=== PATIENT | male | born 1945 | race Caucasian/White ===

== ENCOUNTER → 2017-11-11 | Outpatient (CLI) | payer MEDICARE, OTHER ==
--- NOTE | 2017-11-11 14:29 | Diagnostic Imaging Report ---
EXAMINATION: Renal ultrasound. CLINICAL HISTORY :Renal cyst COMPARISON: <None available.> TECHNIQUE: Grayscale and color Doppler evaluation of the kidneys and bladder was performed in transverse and longitudinal planes. DISCUSSION: RIGHT KIDNEY: The right kidney measures 12.7 cm in length and shows normal echogenicity. No hydronephrosis, shadowing calculi or solid mass lesions. Right renal cyst superiorly measuring 1.6 cm. Previously measured 1.9 cm. LEFT KIDNEY: The left kidney measures 12.6 cm in length and shows normal echogenicity. No hydronephrosis, shadowing calculi or solid mass lesions. BLADDER: Unremarkable. Prostate measures 3.4 x 1.9 x 2.5 cm with a volume of 8.5 cc. IMPRESSION: 1.6 cm right superior simple renal cyst. Signed by: Dr. Lan Flores M.D. on 11/11/2017 2:25 PM
== END ==
LOC: US 13:33
PROVIDERS: ATTEND Urology
DX: N28.1 Cyst of kidney, acquired (principal)
CPT/HCPCS: 76770

== ENCOUNTER 2018-12-24 10:21 | Emergency (ER) | payer MEDICARE, OTHER ==
[~2018-12-24] VITALS: Ht 180.3 cm; Wt 116.6 kg
--- OUTSIDE RECORDS SUMMARY | 2018-12-24 10:23 | XMS REPORT ---
Author [facility] Address Unknown Phone Unavailable Care Team Providers Care Director Of Corporate Sales Name Role Phone MELBA HARRINGTON Unavailable Unavailable Problems This patient has no known problems. Allergies, Adverse Reactions, Alerts This patient has no known allergies or adverse reactions. Medications This patient has no known medications. Results Test Description Test Time Test Comments Text Results Atomic Results Result Comments US RENAL RETROPERITONEAL COMP 2017-11-11 14:24:00 [place] [address] Patient Name: BENNY BROWN MR #: [id number] : 1945 Age/Sex: 72/M Req #: [id number] [facility] Physician: Ordered by: MELBA HARRINGTON MD Report #: [id number] Location: Room/Bed: Procedure: [id number] US/US RENAL RETROPERITONEAL COMP Exam Date: Exam Time: REPORT STATUS: Signed EXAMINATION: Renal ultrasound. CLINICAL HISTORY :Renal cyst COMPARISON: <None available.> TECHNIQUE: Grayscale and color Doppler evaluation of the kidneys and bladder was performed in transverse and longitudinal planes. DISCUSSION: RIGHT KIDNEY: The right kidney measures 12.7 cm in length and shows normal echogenicity. No hydronephrosis, shadowing calculi or solid mass lesions. Right renal cyst superiorly measuring 1.6 cm. Previously measured 1.9 cm. LEFT KIDNEY: The left kidney measures 12.6 cm in length and shows normal echogenicity. No hydronephrosis, shadowing calculi or solid mass lesions. BLADDER: Unremarkable. Prostate measures 3.4 x 1.9 x 2.5 cm with a volume of 8.5 cc. IMPRESSION: 1.6 cm right superior simple renal cyst. Signed by: Dr. Chelsey Miller M.D. on 11/11/2017 2:25 PM Dictated By: CHELSEY MILLER MD 24 Transcribed By: ELIJAH on 11/11/171424 COPY TO: MELBA HARRINGTON MD US RENAL RETROPERITONEAL COMP [place] [address] Patient Name: BENNY BROWN MR #: [id number] : 1945 Age/Sex: 71/M Req #: [id number] Adm Physician: Ordered by: MELBA HARRINGTON MD Report #: [id number] Location: US Room/Bed: Procedure: [id number] US/US RENAL RETROPERITONEAL COMP Exam Date: 01/16/17 Exam Time: 1201 REPORT STATUS: Signed EXAM: Renal Ultrasound INDICATION: COMPARISON: Renal ultrasound dated 10/05/2015 TECHNIQUE: Transverse and longitudinal images of the kidneys and bladder were obtained. FINDINGS: Right Kidney: Size: 11.6 cm Echogenicity: Normal Parenchymal thickness: Normal Collecting system: No hydronephrosis Stones: None Cyst/Mass: Superior pole exophytic cyst measuring 1.9 x 1.6 x 2 cm, not significantly changed from prior exam. Left Kidney: Size: 11.6 cm Echogenicity: Normal Parenchymal thickness: Normal Collecting system: No hydronephrosis Stones: None Cyst/Mass: None Bladder: Unremarkable. Bilateral ureteral jets were seen. Prostate volume measured 22.3 cc on today's exam, previously 44.2 cc. IMPRESSION: Unremarkable renal ultrasound exam. Signed by: Dr. Tuan Roche MD on 01/16/2017 12:50 PM Dictated By: TUAN ROCHE MD 1250 Transcribed By: ELIJAH on 01/16/17 1250 COPY TO: MELBA HARRINGTON MD
[2018-12-24] MEDS ORDERED: SODIUM CHLORIDE 0.9% 1000ML 1,000 ML IV STA (11:11)
[2018-12-24] MEDS ORDERED: ONDANSETRON HCL INJ 2MG/ML 2ML 2 MG/ML VIAL IV ONE (11:30)
[2018-12-24 11:32] LABS: BASOPHILS % 0.3 % (0.0-1.0); EOSINOPHILS % 0.3 % (0.0-6.0); HEMATOCRIT 46.9 % (38.2-49.6); HEMOGLOBIN 16.5 g/dL (14.0-18.0); LYMPHOCYTES # (AUTO) 0.7 (1.0-3.2); LYMPHOCYTES % 8.1 % (18.0-39.1); MEAN CORPUSCULAR HEMOGLOBIN 30.7 pg (28-32); MEAN CORPUSCULAR HGB CONC 35.2 g/dL (31-35); MEAN CORPUSCULAR VOLUME 87.2 fL (81-99); MONOCYTES % 12.1 % (4.4-11.3); NEUTROPHILS # (AUTO) 6.3 (2.1-6.9); NEUTROPHILS % 78.9 % (38.7-80.0); PLATELET COUNT 192 x10e3/uL (140-360); RED BLOOD COUNT 5.38 x10e6/uL (4.3-5.7); RED CELL DISTRIBUTION WIDTH 12.3 % (11.7-14.4)
[2018-12-24 11:56] LABS: ALANINE AMINOTRANSFERASE 21 IU/L (0-55); ALBUMIN 3.6 g/dL (3.5-5.0); ALBUMIN/GLOBULIN RATIO 1.1 (0.8-2.0); ALKALINE PHOSPHATASE 43 IU/L (40-150); ANION GAP 14.3 mmol/L (8-16); BLOOD UREA NITROGEN 10 mg/dL (7-26); BUN/CREATININE RATIO 10 (6-25); CALCIUM 9.2 mg/dL (8.4-10.2); CARBON DIOXIDE 25 mmol/L (22-29); CHLORIDE 101 mmol/L (98-107); CREATININE, SERUM 1.04 mg/dL (0.72-1.25); EST GLOMERULAR FILTRATION RATE > 60 ML/MIN (60-); GLUCOSE 108 mg/dL (74-118); POTASSIUM 3.3 mmol/L (3.5-5.1); SODIUM 137 mmol/L (136-145)
[2018-12-24 12:21] LABS: LIPASE 14 U/L (8-78)
[2018-12-24] MEDS ORDERED: IOPAMIDOL 370 MG/ML 200 ML INFUS..BTL INJ ONE (12:42)
[2018-12-24] MEDS ORDERED: SODIUM CHLORIDE 0.9% 50ML 50 ML ONE (12:42)
[2018-12-24 13:07] LABS: BILIRUBIN,URINE NEGATIVE (NEGATIVE); CLARITY,URINE SL CLOUDY (CLEAR); COLOR,URINE YELLOW (YELLOW); KETONES,URINE 1+ (NEGATIVE); LEUKOCYTE ESTERASE ,URINE NEGATIVE (NEGATIVE); NITRITE,URINE NEGATIVE (NEGATIVE); PROTEIN,URINE DIPSTICK NEGATIVE (NEGATIVE); URINE UROBILINOGEN 0.2 mg/dL (0.2 - 1)
--- NOTE | 2018-12-24 13:19 | Diagnostic Imaging Report ---
EXAM: CT Abdomen and Pelvis WITH intravenous contrast INDICATION: Abdominal pain COMPARISON: None. TECHNIQUE: Abdomen and pelvis were scanned utilizing a multidetector helical scanner from the lung base to the pubic symphysis after administration of IV contrast. Coronal and sagittal reformations were obtained. Routine protocol was performed. Scan was performed during portal venous phase. IV CONTRAST: 100mL of Isovue 370 ORAL CONTRAST: Water RADIATION DOSE: Total DLP: 924.3 mGy*cm Dose modulation, iterative reconstruction, and/or weight based adjustment of the mA/kV was utilized to reduce the radiation dose to as low as reasonably achievable. FINDINGS: LOWER THORAX: Normal. HEPATOBILIARY: No focal liver lesion. No biliary ductal dilation. Status post cholecystectomy. SPLEEN: No splenomegaly. PANCREAS: No focal masses or ductal dilatation. ADRENALS: No adrenal nodules. KIDNEYS/URETERS: Bilateral small renal cysts. No hydronephrosis or renal calculi. No solid renal mass lesion. PELVIC ORGANS/BLADDER: Prostatomegaly to 5.7 cm with coarse internal calcifications. PERITONEUM / RETROPERITONEUM: Mild mesenteric haziness and fat stranding along the SMA distribution with subcentimeter prominent mesenteric lymph nodes. VESSELS: Minimal scattered atherosclerotic calcifications of the nonaneurysmal abdominal aorta and major branches. GI TRACT: Diverticulosis without CT evidence of diverticulitis. No abnormal bowel thickening. No bowel obstruction. BONES AND SOFT TISSUES: No acute osseous injury. No suspicious lytic or blastic lesions. L4 vertebral body hemangioma. IMPRESSION: Mild mesenteric haziness and fat stranding along the SMA distribution with subsegmental meter prominent mesenteric lymph nodes. Findings may represent mild mesenteric lymphadenitis. Diverticulosis without CT evidence of diverticulitis. Prostatomegaly. Signed by: Deion Torres MD on 12/24/2018 1:15 PM
[2018-12-24 13:20] LABS: BACTERIA,URINE MODERATE /HPF; EPITHELIAL CELLS,URINE MODERATE /LPF; MUCUS,URINE MODERATE (RARE); RBC,URINE 0-5 /HPF (0-5); WBC,URINE (MAN) 0-5 /HPF (0-5)
[2018-12-24] MEDS ORDERED: CIPRO500 MG PO (13:57)
[2018-12-24] MEDS ORDERED: FLAGYL500 MG PO (13:57)
== END 2018-12-24 14:50 | disposition home or self-care (01) ==
LOC: ER 10:21
DX: R10.84 Generalized abdominal pain (principal); R19.7 Diarrhea, unspecified; I10 Essential (primary) hypertension
CPT/HCPCS: 36415; 74177; 80053; 81001; 83690; 85025; 99284; J2405; J7030; Q9967

== ENCOUNTER → 2020-07-17 | Outpatient (CLI) | payer MEDICARE, OTHER ==
[~2020-07-17] MED LIST: CIPRO500 MG PO; FLAGYL500 MG PO
== END ==
LOC: CT 09:20
PROVIDERS: ATTEND Internal Medicine
DX: J61 Pneumoconiosis due to asbestos and other mineral fibers (principal)
CPT/HCPCS: 71250

== ENCOUNTER → 2022-01-06 | Outpatient (CLI) | payer MEDICARE, OTHER | LOC: CT 15:21 | PROVIDERS: ATTEND Internal Medicine | DX: J92.0 Pleural plaque with presence of asbestos (principal) | CPT/HCPCS: 71250 ==

== ENCOUNTER → 2024-05-31 | Outpatient (REF) | payer MEDICARE ==
[~2024-05-31] MED LIST changes: +AMLODIPINE BESYL5 MG PO; +ATENOLOL50 MG PO; +BRILINTA90 MG
== END ==
LOC: CT 14:11
PROVIDERS: ATTEND Internal Medicine
DX: J61 Pneumoconiosis due to asbestos and other mineral fibers (principal); Z77.090 Contact with and (suspected) exposure to asbestos
CPT/HCPCS: 71250

== ENCOUNTER 2024-11-10 17:55 | Emergency (ER) | payer MEDICARE ==
[~2024-11-10] VITALS: Ht 180.3 cm; Wt 126.1 kg
[2024-11-10 18:02] VITALS: PULSE 72; RESP 18; TEMP 97.7
[2024-11-10 18:32] LABS: BASOPHILS % 0.4 % (0.0-1.0); EOSINOPHILS % 0.9 % (0.0-6.0); LYMPHOCYTES % 16.6 % (18.0-39.1); MONOCYTES % 10.1 % (4.4-11.3); NEUTROPHILS % 71.9 % (38.7-80.0); RED CELL DISTRIBUTION WIDTH 12.5 % (11.7-14.4)
[2024-11-10 18:43] LABS: INR 1.03
[2024-11-10] MEDS: MECLIZINE HCL 12.5 MG TAB PO ONE (18:45)
[2024-11-10 18:54] LABS: EST GLOMERULAR FILTRATION RATE 62.0 ML/MIN (>=60)
[2024-11-10] MEDS ORDERED: SODIUM CHLORIDE 0.9% 100 ML ONE (19:05)
[2024-11-10] MEDS ORDERED: IOPAMIDOL 370 MG/ML 100 ML INFUS..BTL INJ ONE (19:05)
[2024-11-10] MEDS ORDERED: ANTIVERT25 M1 PO (22:18)
[2024-11-10 22:53] VITALS: BP 127/76; PULSE 64; RESP 15; TEMP 98.7; O2SAT 97
== END 2024-11-10 22:55 | disposition home or self-care (01) ==
LOC: ER 18:22
DX: H81.10 Benign paroxysmal vertigo, unspecified ear (principal); R20.0 Anesthesia of skin; I10 Essential (primary) hypertension; I48.91 Unspecified atrial fibrillation; H81.09 Meniere's disease, unspecified ear; R94.31 Abnormal electrocardiogram [ECG] [EKG]
CPT/HCPCS: 36415; 70496; 70498; 80053; 84484; 85025; 85610; 85730; 93005; 99284; J7050; J8597; Q9967